=== PATIENT | male | born 1995 | race Caucasian/White ===

== ENCOUNTER 2017-09-20 22:36 | Emergency (ER) | payer OTHER ==
[~2017-09-20] VITALS: Ht 182.9 cm; Wt 127.3 kg
[2017-09-20 22:41] VITALS: Ht 182.9 cm; Wt 127.3 kg
[2017-09-20] MEDS ORDERED: KETOROLAC 60 MG INJ IM STA (23:04)
--- NOTE | 2017-09-20 23:20 | ERD ---
ER Documentation Chief Complaint Chief Complaint sp rground level fall, right ankle pain. swelling HPI 22-year-old male presents here in emergency department for complaints of right ankle pain and swelling that started today after twisting it while running today. Patient describes the pain as throbbing pain, 9/10 scale, worse upon movement accompanied with swelling. Patient has difficulty movement of affected area because of pain and swelling. Does not have any numbness or tingling. Mild deformity per patient noted ROS All systems reviewed and are negative except as per history of present illness. Medications Home Meds Reported Medications [none] Unknown Strength No Conflict Check 09/20/17 Allergies Allergies: Coded Allergies: No Known Allergy (Unverified , 09/20/17) PMhx/Soc Medical and Surgical Hx: pt denies Medical Hx, pt denies Surgical Hx Hx Alcohol Use: No Hx Substance Use: No Hx Tobacco Use: No FmHx Family History: No coronary disease, No diabetes, No other Physical Exam Vitals Vital Signs Date Time Temp Pulse Resp B/P Pulse Ox O2 Delivery O2 Flow Rate FiO2 09/20/17 22:41 98.2 97 20 164/77 100 Physical Exam GENERAL: The patient is well developed and appropriate for usual state of health, in no apparent distress. CHEST: Clear to auscultation bilaterally. There are no rales, wheezes or rhonchi. HEART: Regular rate and rhythm. No murmurs, clicks, rubs or gallops. No S3 or S4. ABDOMEN: Soft, nontender and nondistended. Good bowel sounds. No rebound or guarding. No gross peritonitis. No gross organomegaly or masses. No Almaguer sign or McBurney point tenderness. BACK: No midline or flank tenderness. EXTREMITIES: Swelling tenderness on palpation of the lateral malleolus of the right ankle, unable to do full range of motion because of pain and swelling. Mild deformity noted. Equal pulses bilaterally. There is no peripheral clubbing , cyanosis or edema. No focal swelling or erythema. Full Range of motion of other joints of the body grossly neurovascularly intact. NEURO: Alert and oriented. Cranial nerves 2-12 intact. Motor strength in all 4 extremities with 5/5 strength. Sensation grossly intact. Normal speech and gait. SKIN: There is no apparent rash or petechia. The skin is warm and dry. HEMATOLOGIC AND LYMPHATIC: There is no evidence of excessive bruising or lymphedema. No gross cervical, axillary, or inguinal lymphadenopathy. Results 24 hrs Current Medications Medications (Trade) Dose Ordered Sig/Nieves Route PRN Reason Start Time Stop Time Status Last Admin Dose Admin Ketorolac Tromethamine (Toradol) 60 mg ONCE STAT IM 09/20/17 23:04 09/20/17 23:07 DC 09/20/17 23:37 Patient was given medication for pain here in emergency department, after treatment, patient verbalized feeling much better. Patient's pain is improved. PROCEDURE: X-ray right ankle. CLINICAL INDICATION: Trauma to the right ankle. TECHNIQUE: 3 views right ankle. COMPARISON: None FINDINGS: Heterotopic ossification at the tip of the right fibula suggest sequela of remote injury. There is widening of the lateral mortise and this may also represent the sequela of remote ligamentous injury. There is soft tissue swelling over the lateral and anterior aspects of the right ankle. Otherwise, there is no evident acute fracture. IMPRESSION: 1. Heterotopic ossification at the tip of the right fibula with widening of the lateral mortise, and these findings suggest the sequela of remote trauma. 2. Soft tissue swelling over the lateral and anterior right ankle. 3. Otherwise, no evident acute fracture. RPTAT: [facility] Physician Jeison Date Time Electronically viewed and signed by Physician Jeison on 09/20/2017 23:44 RS/ CC: NERY BOX MD After receiving patients xray report, a posterior ankle splint was applied on the patients right ankle. After application of the splint, patient has intact sensation and circulation on distal area of the affected joint. Patient does not complain of numbness or tingling after application of the splint. Patient tolerated procedure well. Crutches was given to use afterwards Procedures/MDM Medical Decision Making: Patient's pain is most likely consistent with a ankle sprain. There is no suspicion for neurovascular compromise. Patient has intact sensation and circulation of the affected extremity. There is low suspicion for septic arthritis. Patient does not have any fever. Radiology exams of the affected area does not show any fracture or dislocation. Disposition: Home. Patient is given prescription for ibuprofen for pain and [place] for severe pain. Patient was advised to see primary care doctor for possible outpatient MRI for further evaluation of ligament injury.. Patient was advised to elevate the affected area and apply ice on affected area. Patient was advised that if symptoms are worse, numbness, tingling, high fever, unable to move joint, worsening symptoms, to return to emergency department immediately. Otherwise, patient is advised to follow up with the primary care doctor in 5-7 days for reevaluation of symptoms. Disclaimer: Inadvertent spelling and grammatical errors are likely due to EHR/ dictation software use and do not reflect on the overall quality of patient care. Also, please note that the electronic time recorded on this note does not necessarily reflect the actual time of the patient encounter. Departure Diagnosis: Primary Impression: Ankle sprain Encounter type: initial encounter Involved ligament of ankle: unspecified ligament Laterality: right Qualified Code: S93.401A - Sprain of right ankle , unspecified ligament, initial encounter Condition: Stable Patient Instructions: Treating Ankle Sprains Additional Instructions: Patient is given prescription for ibuprofen for pain and [place] for severe pain. Patient was advised to see primary care doctor for possible outpatient MRI for further evaluation of ligament injury.. Patient was advised to elevate the affected area and apply ice on affected area. Patient was advised that if symptoms are worse, numbness, tingling, high fever, unable to move joint, worsening symptoms, to return to emergency department immediately. Otherwise, patient is advised to follow up with the primary care doctor in 5-7 days for reevaluation of symptoms. BRYAN WALTON NP Sep 20, 2017 23:20
--- NOTE | 2017-09-20 23:45 | RADRPT ---
PROCEDURE: X-ray right ankle. CLINICAL INDICATION: Trauma to the right ankle. TECHNIQUE: 3 views right ankle. COMPARISON: None FINDINGS: Heterotopic ossification at the tip of the right fibula suggest sequela of remote injury. There is w idening of the lateral mortise and this may also represent the sequela of remote ligamentous injury. There is soft tissue swelling over the lateral and anterior aspects of the right ankle. Otherwise, there is no evident acute fracture. IMPRESSION: 1. Heterotopic ossification at the tip of the right fibula with widening of the lateral mortise, and these findings suggest the sequela of remote trauma. 2. Soft tissue swelling over the lateral and anterior right ankle. 3. Otherwise, no evident acute fracture. RPTAT: [facility] Physician Jeison Date Time Electronically viewed and signed by Physician Jeison on 09/20/2017 23:44 RS/
[2017-09-20] MEDS ORDERED: IBUP-1542 PO (23:52)
[2017-09-20] MEDS ORDERED: HYDR-906 PO (23:52)
== END 2017-09-21 00:22 | disposition home or self-care (01) ==
LOC: FTE 22:36
DX: S93.401A Sprain of unspecified ligament of right ankle, initial encounter (principal); X50.9XXA Other and unspecified overexertion or strenuous movements or postures, initial encounter; Y92.9 Unspecified place or not applicable
CPT/HCPCS: 29515; 73610; 96372; J1885; Z7502

== ENCOUNTER 2017-11-27 22:25 | Emergency (ER) | END 2017-11-28 02:04 | disposition home or self-care (01) ==

== ENCOUNTER 2019-06-23 09:09 | Emergency (ER) | payer OTHER ==
[~2019-06-23] VITALS: Ht 182.9 cm; Wt 137.3 kg
[~2019-06-23 09:09] MED LIST: ACYC800T5 PO; HYDR-4011 PO; IBUP-1542 PO; LACR35O LEFT EYE; PRED20TA PO
[2019-06-23 09:16] VITALS: BP 147/78; PULSE 100; RESP 18; Ht 182.9 cm; Wt 137.3 kg
== END 2019-06-23 09:41 | disposition home or self-care (01) ==
LOC: E/R 09:09
DX: G51.0 Bell's palsy (principal)
CPT/HCPCS: 99283